=== PATIENT | female | born 1945 | race Caucasian/White ===

== ENCOUNTER 2017-04-19 12:16 | Outpatient (CLI) | payer MEDICARE ==
--- NOTE | 2017-04-19 14:30 | ULT ---
LEFT UPPER EXTREMITY VENOUS DUPLEX SONOGRAM: HISTORY: Left arm pain and edema. Breast cancer. FINDINGS: The left internal jugular and subclavian veins are evaluated along with the axillary, brachial, cepha lic, and basilic veins. There is good color and spectral Doppler flow, compression, and augmentation . IMPRESSION: No sonographic evidence of deep venous thrombosis within the left upper extremity. POS: [facility]
== END 2017-04-19 12:17 | disposition home or self-care (01) ==
LOC: ULT 12:16
PROVIDERS: ATTEND Internal Medicine Hematology & Oncology
DX: I82.90 Acute embolism and thrombosis of unspecified vein (principal); R60.0 Localized edema; M79.602 Pain in left arm
CPT/HCPCS: 82565

== ENCOUNTER 2017-09-18 11:50 | Outpatient (CLI) | payer MEDICARE ==
--- NOTE | 2017-09-18 15:04 | PET ---
PET SCAN WITH CT EVALUATION FROM SKULL TO MID THIGH: Date: 09/18/17 INDICATION: History of left-sided breast cancer. COMPARISON: Recent PET CT dated 08/24/15. RADIOPHARMACEUTICAL: 11.1 mCi F18-FDG IV was utilized. TECHNIQUE: Multiple PET CT images were obtained of the body from the skull base through the mid thighs following the administration of the radiopharmaceutical. CT images were obtained for attenuation correction pu rposes only. FINDINGS: The biodistribution for this examination appears acceptable. Head/Neck: No hypermetabolic lymphadenopathy or mass is identified. Thorax: There is a new 9.0 mm right upper lobe pulmonary nodule with mild increased metabolic uptake up to 1. 0. No new additional pulmonary nodule is demonstrated. No hypermetabolic lymphadenopathy is noted. Abdomen/Pelvis: There are multiple small hypermetabolic masses now present within the liver. Peak SUV uptake seen wit hin the left hepatic lobe lesion is 7.37. The previously seen right hepatic lobe lesion now has a pea k SUV uptake of 6.17. No additional hypermetabolic mass or lymphadenopathy is evident. Skin/Osseous Structures: The extent of the diffuse osteoblastic metastatic disease has improved from the comparison exam. Larg e residual areas of hypermetabolic activity remain within the region of the sacrum, thoracolumbar spi ne, ribs, proximal left femur, and right glenoid. IMPRESSION: Abnormal PET CT: 1. Findings of some mixed response to therapy. There is worsening hepatic metastatic disease but imp roved osseous metastatic disease. There are more numerous hypermetabolic masses now demonstrated with in the liver that what was seen on comparison in 2016. The degree and extent of the osseous metastati c disease has improved from the comparison study. 2. New nonhypermetabolic pulmonary nodule within the right upper lobe is suspicious for pulmonary me tastatic disease. CT follow-up in 6-8 weeks may be helpful. POS: [facility]
== END 2017-09-18 11:51 | disposition home or self-care (01) ==
LOC: PET 11:50
PROVIDERS: ATTEND Internal Medicine Hematology & Oncology
DX: C50.919 Malignant neoplasm of unspecified site of unspecified female breast (principal); C79.51 Secondary malignant neoplasm of bone; R16.0 Hepatomegaly, not elsewhere classified; R91.1 Solitary pulmonary nodule
CPT/HCPCS: 78815; A9552

== ENCOUNTER 2018-04-23 11:24 | Outpatient (CLI) | payer MEDICARE ==
--- NOTE | 2018-04-24 10:36 | PET ---
PET CT: HISTORY: Breast cancer with bony metastatic disease. COMPARISON: 09/18/17. TECHNIQUE: A PET CT was performed from the skull base through the mid thigh after administration of 11.4 mCi F18 -FDG. FINDINGS: The patient is status post left mastectomy. There are multifocal sclerotic lesions throughout the ske leton. Some of these lesions do not demonstrate hypermetabolic activity. However, there is persistent hypermetabolic activity in the bones consistent with diffuse osseous metastatic disease. When compar ed to the prior examination, this activity has changed slightly. The activity in the sacrum is not as intense as it was on the prior examination with a max SUV value of 5.0. However, activity has increa sed within some of the thoracic vertebral bodies. The T10 vertebral body has a max SUV value of 3.6. There is focal increased hypermetabolic activity in the anterior right lobe of the liver with a max S UV value of 4.5. This is in a different location than where the liver previously had hypermetabolic a ctivity in the right lobe, more posteriorly. No CT correlate is seen on the noncontrast CT images and this may or may not represent hepatic metastatic disease. No suspicious or hypermetabolic activity is seen in the neck. There is a small right upper lobe nodul e which is subcentimeter in size with a SUV value of 1.0. This is not changed in size compared to the prior examination and metabolic activity has not become more intense. No other pulmonary nodules are seen. No suspicious or hypermetabolic activity seen in the abdomen or pelvis. IMPRESSION: 1. Worsening hypermetabolic activity in the bones suggest worsening of osseous metastatic disease. 2. There is change activity in the liver. The activity in the liver may or may not represent hepatic metastatic disease. No CT correlate is seen. 3. Right upper lobe stable pulmonary nodule. POS: [facility]
== END 2018-04-23 11:25 | disposition home or self-care (01) ==
LOC: PET 11:24
PROVIDERS: ATTEND Internal Medicine Hematology & Oncology
DX: C50.919 Malignant neoplasm of unspecified site of unspecified female breast (principal); C79.51 Secondary malignant neoplasm of bone; R91.1 Solitary pulmonary nodule
CPT/HCPCS: 78815; A9552

== ENCOUNTER 2018-08-08 06:06 | Day surgery (SDC) | payer MEDICARE ==
[2018-07-31 12:11] VITALS: BMI 20.7
[2018-08-08] MEDS ORDERED: Fentanyl 100 MCG/2 ML VIAL ONE (06:13)
[2018-08-08] MEDS ORDERED: Propofol 1,000 MG/100 ML VIAL IV ONE ×2 (06:17→06:18)
[2018-08-08] MEDS ORDERED: Bupivacaine/Epinephrine 0.25% 30 ML VIAL ONE (06:38)
[2018-08-08] MEDS ORDERED: Lidocaine 1% (PF) 30 ML VIAL ONE (06:38)
[2018-08-08] MEDS ORDERED: Ketorolac Tromethamine 30 MG/ML VIAL ONE (06:46)
--- NOTE | 2018-08-08 09:47 | RAD ---
CHEST 1 VIEW: INDICATION: Status post MediPort placement. COMPARISON: Prior exam dated 01/04/2018. FINDINGS: There is a new right chest wall MediPort in place. The tip of the catheter projects in the region of the SVC. Heart size is normal. The lungs are clear. No pleural effusion or pneumothorax evident. There are surgical clips within the left axilla. Thoracolumbar scoliosis is stable. IMPRESSION: New right chest wall port without evidence of pneumothorax. POS: [facility]
--- NOTE | 2018-08-09 02:23 | OP ---
DATE OF PROCEDURE: 08/08/2018 PREOPERATIVE DIAGNOSIS: Metastatic breast cancer. POSTOPERATIVE DIAGNOSIS: Metastatic breast cancer. OPERATION PERFORMED: Placement of right subclavian low-profile power compatible MediPort. ANESTHESIA: Total intravenous anesthesia with local using 0.25% Marcaine with epinephrine. INDICATIONS: The patient is a 73-year-old white female. She has metastatic breast cancer to bone and liver. MediPort is requested for chemotherapy administration. DESCRIPTION OF OPERATION: Informed consent was obtained. The patient was taken to the operating room where total intravenous anesthesia was obtained with the patient in supine position. Right periclavicular area was prepped with ChloraPrep and draped in sterile fashion. Local anesthetic was infiltrated and a large-gauge needle was passed under the clavicle in the subclavian vein. Guidewire was passed through the needle and fluoroscopically confirmed to enter the superior vena cava. Additional local anesthetic was infiltrated and transverse incision was created based on needle insertion site. A subcutaneous pocket was dissected inferiorly. Introducer dilator was passed over the guidewire under fluoroscopic guidance. The guidewire and dilator were removed, and the catheter was passed through the introducer. The tip of the catheter was positioned at the atriocaval junction and the catheter was trimmed to the appropriate length and secured to the locking hub of the MediPort. The port was then placed in the subcutaneous pocket where it was secured to the pectoral fascia with 2 interrupted sutures of 3-0 Prolene. The incision was then closed in layers with 3-0 and 4-0 Monocryl. Additional local anesthetic was infiltrated. The port was cannulated with a Fitzpatrick needle and it aspirated blood freely and was flushed with heparinized saline. Dermabond was placed externally on the skin incision. There were no complications. Blood loss was negligible. The patient tolerated the procedure well and was taken to recovery room in stable condition. FINDINGS: The patient is thin, therefore I used a low-profile power compatible MediPort. The patient's anatomy was within normal limits and there were no problems during the procedure. The only port that is available in this size had a smaller catheter lumen, so I used a 6-T[place] catheter. The port was placed uneventfully in the right subclavian vein. She had had a prior right subclavian MediPort. There were no complications. Blood loss was negligible. The patient tolerated the procedure well. Job ID: [id number]
== END 2018-08-08 09:22 | disposition home or self-care (01) ==
LOC: SDC 06:06
PROVIDERS: ATTEND Specialist
PROC: 0JH63WZ Insertion of Totally Implantable Vascular Access Device into Chest Subcutaneous Tissue and Fascia, Percutaneous Approach (ICD-10-PCS; principal; 2018-08-08)
DX: C50.912 Malignant neoplasm of unspecified site of left female breast (principal); C78.7 Secondary malignant neoplasm of liver and intrahepatic bile duct; C79.51 Secondary malignant neoplasm of bone; Z79.899 Other long term (current) drug therapy
CPT/HCPCS: 36561; 71045; C1788; J0131; J1642; J1885; J2001; J2704; J3010

== ENCOUNTER 2019-02-06 10:49 | Outpatient (CLI) | payer MEDICARE ==
--- NOTE | 2019-02-06 15:37 | PET ---
PET CT: HISTORY: 73-year-old female with breast cancer and bone mets. Rising CA 27.29. Patient is currently undergoing chemotherapy. TECHNIQUE: PET scanning with CT attenuation correction was performed from the base of the brain through the prox imal thighs following the intravenous administration of 10.2 mCi F18-FDG in the right-sided MediPort. COMPARISON: PET CT dated 04/23/18. FINDINGS: No fallon hypermetabolism is seen in the neck, chest, axilla, abdomen, or pelvis. No hypermetabolic pu lmonary nodules, liver, adrenal, or skeletal lesions are seen. Uptake in the skeleton does not exceed that of the liver. Numerous sclerotic lesions are again seen in the skeleton. However, the previously noted hypermetabol ic activity in the osseous lesions noted on the previous study has resolved. There is physiologic activity in the GI and tracts, heart, and visualized portions of the brain. The CT scan used for attenuation correction demonstrates bilateral moderate sized pleural effusions, left greater than right. No ascites is seen. IMPRESSION: 1. No evidence of abnormal FDG localization. 2. Bilateral pleural effusions. 3. Extensive sclerotic osseous lesions. POS: [facility]
== END 2019-02-06 10:50 | disposition home or self-care (01) ==
LOC: PET 10:49
PROVIDERS: ATTEND Internal Medicine Hematology & Oncology
DX: C79.51 Secondary malignant neoplasm of bone (principal); C50.919 Malignant neoplasm of unspecified site of unspecified female breast; J90 Pleural effusion, not elsewhere classified; M89.9 Disorder of bone, unspecified
CPT/HCPCS: 78815; A9552

== ENCOUNTER 2019-02-27 10:23 | Outpatient (CLI) | payer MEDICARE ==
--- NOTE | 2019-02-27 11:56 | ULT ---
LEFT LOWER EXTREMITY VENOUS DUPLEX EXAM: HISTORY: Left leg pain and edema. TECHNIQUE: Real-time color Doppler evaluation of the left lower extremity was performed from the groin to the in lf. This includes evaluation of the common femoral, superficial and profunda femoral, saphenous, popl iteal, posterior tibial and peroneal veins. FINDINGS: This shows a patent deep venous system. There is normal compressibility and augmentation. There is no evidence of DVT. IMPRESSION: No evidence of deep venous thrombosis of the left lower extremity. POS: [facility]
== END 2019-02-27 10:24 | disposition home or self-care (01) ==
LOC: ULT 10:23
PROVIDERS: ATTEND Internal Medicine Hematology & Oncology
DX: M79.605 Pain in left leg (principal); R60.0 Localized edema; I82.90 Acute embolism and thrombosis of unspecified vein

== ENCOUNTER 2019-06-02 08:38 | Outpatient (CLI) | payer MEDICARE ==
--- NOTE | 2019-06-02 11:09 | CT ---
CT OF THE CHEST, ABDOMEN AND PELVIS WITH IV CONTRAST INDICATION: History of breast cancer with metastatic disease to the liver and bones COMPARISON: PET/CT dated February 06, 2019, September 18, 2017 and August 24, 2015 FINDINGS: CHEST: Lungs: The subpleural sub-4 mm pulmonary nodule in the anterior left upper lobe is stable. No new pul monary nodule is evident. Pleural space: There are small bilateral pleural effusions, left greater than right which are slight ly smaller than on the comparison PET/CT dated February 06, 2019. Mediastinum: No pathologically enlarged lymph nodes are evident. Axilla: No pathologically enlarged lymph nodes. ABDOMEN: Lung bases: Clear Liver: Metastatic lesions of the liver appear slightly more prominent than on the most recent PET/CT dated February 06, 2019 but are slightly smaller than seen on the comparison PET/CT dated September 18, 2017. Index lesion within the left hepatic lobe now measures 1.2 cm were previously measured 2.2 cm. The lesion within the right hepatic dome previously measuring 1.50 now measures 1.1 cm. Lesion seen within the right hepatic lobe previously measuring 1.6 cm now measures 0.8 cm there is diffuse hetero geneous enhancement of the liver some of which has the appearance of peripherally enhancing hypodense lesions particularly on image 49 of series 2. Gallbladder: Normal appearing. Pancreas: Normal. Adrenal glands: Normal. Spleen: Normal. Kidneys and ureters: Normal. No hydronephrosis. Vasculature: There are mild vascular calcifications seen involving the visualized vasculature. Lymph nodes:No lymphadenopathy. Free fluid in abdomen:No free fluid is evident. PELVIS: Small and large bowel: Normal Appendix:Normal Bladder: Normal. Rectal and perirectal soft tissues:Normal. Reproductive structures: Normal. Free fluid in pelvis: No free fluid is evident. Lymphadenopathy pelvis: No lymphadenopathy is evident. Osseous structures: The diffuse sclerotic metastatic lesions are largely stable. Index lesion within the left femoral head measures 1.1 cm which is stable. There is a new nondisplaced fracture involving the lateral right sixth rib. There is scattered degenerative and osteoarthritic changes. Soft tissues:Normal. IMPRESSION: 1. Findings suspicious for worsening hepatic metastatic disease. The hypodense lesions involving the liver with associated FDG activity on a PET scan dated September 18, 2017 are still slightly smaller than this examination; however, the lesions appear to have intervally grown since the most recent PET/CT d ated February 06, 2019. There are new scattered areas of punctate enhancement suspicious for new hepatic metastatic lesions. 2. Largely stable osteoblastic metastatic disease. There is a new nondisplaced fracture involving the right lateral sixth rib. 3. Stable sub-4 mm, subpleural pulmonary nodule in the left upper lobe. 4. Decreasing size of the bilateral pleural effusions. Small residual pleural effusions remain.
--- NOTE | 2019-06-02 11:17 | CT ---
CT BRAIN WITH AND WITHOUT IV CONTRAST: Date: 06/02/2019 HISTORY: Breast cancer with bone mets. FINDINGS: No evidence of infarct, hemorrhage, mass, midline shift, or abnormal extra-axial fluid collections ar e seen. The ventricular size is normal and the basilar cisterns are patent. No abnormal postcontrast enhancement is noted. The bony calvarium is intact. The visualized paranasal sinuses and mastoid air cells are well aerated. IMPRESSION: No CT evidence of intracranial metastatic disease. POS: [facility]
[2019-06-02] MEDS ORDERED: Iopamidol 370 76% 50 ML VIAL FS ONE (14:56)
[2019-06-02] MEDS ORDERED: Iopamidol 370 76% 100 ML VIAL ONE (14:56)
--- NOTE | 2019-06-02 15:31 | NM ---
WHOLE BODY BONE SCAN: Date: 06/02/2019 HISTORY: Malignant neoplasm of unspecified site of left female breast. RADIOPHARMACEUTICAL: 32.6 mCi technetium-99m MDP injected intravenously. COMPARISON: None. CORRELATION: CT chest/abdomen/pelvis of same date, and PET scan of 02/06/2019. FINDINGS: Numerous foci of increased uptake are seen in the skeleton including the skull, right scapula, spine, ribs, pelvis, and proximal femurs. Tracer excretion through the kidneys is within normal limits. IMPRESSION: Findings are consistent with widespread osseous metastatic disease. POS: [facility]
== END 2019-06-02 08:39 | disposition home or self-care (01) ==
LOC: CT 08:38
PROVIDERS: ATTEND Internal Medicine Hematology & Oncology
DX: C50.912 Malignant neoplasm of unspecified site of left female breast (principal); C79.51 Secondary malignant neoplasm of bone; C78.7 Secondary malignant neoplasm of liver and intrahepatic bile duct; J90 Pleural effusion, not elsewhere classified; R97.0 Elevated carcinoembryonic antigen [CEA]; K76.9 Liver disease, unspecified; R91.1 Solitary pulmonary nodule; S22.31XA Fracture of one rib, right side, initial encounter for closed fracture
CPT/HCPCS: 70470; 71260; 74177; 78306; 80053; 82248; 83615; 84100; 84550; 86300; A9503; Q9967

== ENCOUNTER 2019-06-11 09:21 | Outpatient (CLI) | payer MEDICARE ==
--- NOTE | 2019-06-11 11:56 | MRI ---
MRI PELVIS WITH AND WITHOUT CONTRAST: HISTORY: C79.51, secondary malignant neoplasm of bone. COMPARISON: Bone scan from 06/02/2019. CT exam from 06/02/2019. FINDINGS: On the T1 weighted imaging sequence, there is near complete marrow signal replacement of the sacrum, ilium and acetabulum, as well as the both superior and inferior pubic rami with T1 hypointense signal . There is also extensive hypointense signal of the femoral necks bilaterally. There is associated mi ld internal enhancement of these foci. There is an abnormal linear area of sclerosis within the right acetabulum, suggesting a nondisplaced insufficiency type fracture. The same is true for the left acetabulum. There is high trade tendinosis of both common hamstring tendons, greater on the left, with extensive interstitial tearing. Small volume free fluid in the pelvis. No dilated loops of bowel in the pelvis. Some mild edema within the left adductor longus muscle as well as the left pectineus. IMPRESSION: 1. Abnormal marrow signal replacement of nearly the entire sacrum, ilium, and acetabulum as well as b oth obturator rings with metastatic depositions. Given the internal enhancement, the majority of thes e metastatic deposits appear to be active metastasis and not treated metastasis. 2. Linear areas of sclerosis, both acetabula, slightly greater on the right, suggesting nondisplaced insufficiency type fractures due to the replacement of marrow with metastatic deposits. POS: [facility]
== END 2019-06-11 09:22 | disposition home or self-care (01) ==
LOC: MRI 09:21
PROVIDERS: ATTEND Internal Medicine Hematology & Oncology
DX: C50.912 Malignant neoplasm of unspecified site of left female breast (principal); C79.51 Secondary malignant neoplasm of bone; R10.32 Left lower quadrant pain; R93.7 Abnormal findings on diagnostic imaging of other parts of musculoskeletal system; M89.9 Disorder of bone, unspecified
CPT/HCPCS: 72197

== ENCOUNTER 2019-07-09 08:57 | Outpatient (CLI) | payer MEDICARE ==
--- NOTE | 2019-07-09 10:24 | ULT ---
Abdominal ultrasound: 07/09/2019 COMPARISON: None HISTORY: Ascites, history of breast cancer TECHNIQUE: Multiplanar grayscale sonographic imaging of the abdomen provided FINDINGS: Imaged portions of the IVC and aorta appear grossly unremarkable, partially obscured by bow el gas. The hepatic parenchyma is heterogeneous and echogenic with peripheral irregular contour. Findings suggest hepatocellular disease, which could reflect metastatic disease in the proper clinica l setting. No discrete/measurable hepatic mass is seen. Right kidney measures 8.9 cm in craniocaudal dimension and demonstrates no evidence for stone, hydron ephrosis, or mass lesion. Left kidney measures 9.3 cm in craniocaudal dimension and demonstrates no evidence for stone, hydrone phrosis, or mass lesion. There is gallbladder wall thickening with no gallstones noted. Pulpit Operator reports a negative Johns's sign. This gallbladder wall thickening is likely related to systemic proc ess. Spleen measures up to 10.3 cm, within normal limits. A partially visualized left pleural effusion is noted. There is small volume ascites noted, including small volume free fluid adjacent to the liver and small volume free fluid within the right lower quadrant. IMPRESSION: Abnormal appearance of the liver with peripheral lobulated contour and overall heterogene ity, which could signify chronic hepatocellular disease and or metastatic disease. Clinical correlation is required given history of breast cancer. Small volume ascites and incompletely imaged and left pleural effusion.
== END 2019-07-09 08:58 | disposition home or self-care (01) ==
LOC: ULT 08:57
PROVIDERS: ATTEND Internal Medicine Hematology & Oncology
DX: R18.8 Other ascites (principal); J90 Pleural effusion, not elsewhere classified; Z85.3 Personal history of malignant neoplasm of breast
CPT/HCPCS: 93975

== ENCOUNTER 2019-07-22 12:00 | Observation (INO) | payer MEDICARE ==
[2019-07-22 12:44] LABS: Hemoglobin 10.7 g/dL (12.0-16.0); Mean Corpuscular HGB CONC 33.1 g/dL (32.0-36.0); Mean Corpuscular Hemoglobin 32.6 pg (27.0-31.0); Mean Corpuscular Volume 98.7 fL (78.0-98.0); Mean Platelet Volume 9.7 fL (7.4-10.4); Platelet Count 142 thou/uL (130-400); RBC Distribution Width 19.5 % (11.5-14.5); Red Blood Cell (RBC) Count 3.27 mill/uL (4.20-5.40); White Blood Cell (WBC) Count 3.3 thou/uL (4.8-10.8)
[2019-07-22 12:57] LABS: Bacteria/HPF None Seen HPF (None Seen); Bilirubin Negative (Negative); Blood, Urine Trace (Negative); Clarity Clear (Clear); Glucose, Urine (Dipstick) Normal (Negative); Leukocyte Negative Leu/uL (Negative); Nitrite Negative (Negative); Protein, Urine (Dipstick) 70 mg/dL (Neg-Trace); Squamous Epithelial None Seen HPF (0-3); Urobilinogen Normal mg/dL (Less than 2); WBC/HPF 0-3 HPF (0-3)
[2019-07-22 13:00] LABS: Anisocytosis SLIGHT = 6-15 cells (100X) (0-5/hpf); Band 4 % (5-11); Lymphocytes 16 % (21-51); MDiff Complete? YES; Metamyelocyte 1 % (0-0); Monocytes 13 % (0-10); Neutrophil 65 % (42-75); Nucleated RBC 2 % (0); Platelet Morphology Comment Appears Adequate; Polychromasia MODERATE = 3-4 cells (100X) (0-2/hpf)
[2019-07-22 13:01] LABS: ALT (SGPT) 65 U/L (8-55); AST (SGOT) 173 U/L (5-34); Albumin 2.9 g/dL (3.4-4.8); Alkaline Phosphatase 615 U/L (40-110); Anion Gap 13 mmol/L (10-20); BUN (Urea Nitrogen) 23 mg/dL (9.8-20.1); Bilirubin, Total 0.8 mg/dL (0.2-1.2); Calc. Creatinine Clearance 0 mL/min (70-130); Calcium 7.8 mg/dL (7.8-10.44); Carbon Dioxide 18 mmol/L (23-31); Chloride 107 mmol/L (98-107); Estimated GFR-MDRD 52; Globulin 2.2 g/dL (2.4-3.5); Glucose 127 mg/dL (83-110); Lipase 45 U/L (8-78); Potassium 3.7 mmol/L (3.5-5.1); Protein, Total 5.1 g/dL (6.0-8.3); Sodium 134 mmol/L (136-145)
--- NOTE | 2019-07-22 13:06 | RAD ---
PORTABLE CHEST 1 VIEW: Date: 07/22/2019 Time: 1235 hours HISTORY: Dyspnea. Breast cancer. Osseous metastatic disease. FINDINGS: Comparison made with exam of 08/08/2018. Right-sided Port-A-Cath remains in place. The heart size is normal. No lobar consolidation, pneumotho races, or pleural effusions are seen. IMPRESSION: No radiographic evidence of acute cardiopulmonary process. POS: [facility]
--- NOTE | 2019-07-22 13:12 | ULT ---
BILATERAL LOWER EXTREMITY VENOUS DOPPLER ULTRASOUND: Date: 07/22/2019 COMPARISON: None. HISTORY: Pain, swelling, edema, assess for deep venous thrombosis. TECHNIQUE: Multiplanar Red scale sonographic imaging of the venous structures of bilateral lower extremities ob tained with color flow and spectral analysis. FINDINGS: Bilateral common femoral veins, greater saphenous veins, profunda femoral veins, femoral veins, popli teal veins, and posterior tibial veins are patent. Normal blood flow, augmentation, and compression w ithin the deep venous system bilaterally. No evidence for deep venous thrombosis on either side. IMPRESSION: No evidence for deep venous thrombosis of either lower extremity. POS: [facility]
--- NOTE | 2019-07-22 13:52 | CT ---
CTA Angio Chest W WO Con 07/22/2019 12:21 PM Indication: History of breast cancer with shortness of breath Technique: Multiple CTA images were obtained of the thorax with IV contrast. 3-D rendering: MIP aneudy nstructed images were created and reviewed. Comparison: CT the chest, abdomen and pelvis dated June 02, 2019 Findings: Pulmonary arteries: Respiratory motion artifact slightly limits evaluation of the segmental pulmonar y arterial branches of both lung bases. No definite central pulmonary embolus is demonstrated. Heart and Aorta: Normal appearing. Mediastinum:There is prominent wall thickening involving the mid to distal esophagus which is develop ed in the interim. There is a persistent small hiatal hernia. Lungs:There is bibasilar atelectasis, left greater than right. Pleural space: There is a worsening moderate left and small right pleural effusion Upper Abdomen: Again seen are numerous hypodense lesions involving the liver suspicious for underlyi ng hepatic metastatic disease. There is worsening mild ascites of the upper abdomen. Osseous Structures: Stable ununited right lateral sixth rib fracture. Stable diffuse osteoblastic me tastatic disease Soft tissues:Stable postsurgical change of a left mastectomy left axillary lymph node biopsy. Mild an asarca. Other findings:None. Impression: 1. Some limitations in exam. No definite central pulmonary embolus. 2. Worsening moderate left and mild right pleural effusion with mild ascites and mild anasarca. 3. Interval development of prominent wall thickening involving the mid to distal esophagus suspicious for esophagitis. There is persistent small hiatal hernia. 4. Stable diffuse osseous and hepatic metastatic disease.
[2019-07-22] MEDS ORDERED: Iopamidol-370 76% 500 ML 1 ML ONE (13:58)
[2019-07-22] MEDS ORDERED: Acetaminophen 325 MG TAB PO PRN (18:48)
[2019-07-22] MEDS ORDERED: Ondansetron PF 4 MG/2 ML Vial IVP PRN (18:48)
[2019-07-22] MEDS ORDERED: Ondansetron ODT 4 MG TAB PO PRN (18:48)
[2019-07-22] MEDS ORDERED: Guaifenesin DM 100-10/5 ML UDCUP PO PRN (18:48)
[2019-07-22] MEDS ORDERED: Senokot S 8.6-50 MG TAB PO PRN (18:48)
[2019-07-22] MEDS ORDERED: Zolpidem Tartrate 5 MG TAB PO PRN (18:48)
[2019-07-22] MEDS ORDERED: Acetaminophen 650 MG Suppository PR PRN (18:48)
[2019-07-22] MEDS ORDERED: HYDROcodone/Acetaminophen 5/325 mg Tablet PO PRN ×2 (18:48)
--- NOTE | 2019-07-22 20:32 | HP ---
PRIMARY CARE PHYSICIAN: Bria Naylor. CHIEF COMPLAINT: Shortness of breath and swelling. HISTORY OF PRESENT ILLNESS: This is a 74-year-old white female with a known history of metastatic breast cancer metastasized to the bones and the liver. She was diagnosed back in 2011, had mastectomy and lymph node dissection, has had multiple courses of different types of chemotherapy. Most recently two weeks ago, was seen by Dr. Herman and then was sent to Dr. Franco for a 10-day course of radiation therapy to the cancer in her pelvis. After completing that, she noticed some increasing swelling in her lower extremities and also some increasing shortness of breath and a band sensation around her diaphragm area. The patient has had increased swelling of her abdomen over the last few weeks to months. It has been slowly getting worse. She has had an ultrasound that just showed a small amount of ascites, nothing that could be drained. She has had a little bit of a cough with shortness of breath, but no sputum production. Has not had any fever or chills or any other infectious symptoms. When she noticed her legs swollen this morning is when she decided to come into the emergency room. In the ER, the patient had a CT scan, which showed a moderate-sized left pleural effusion and mild right pleural effusion with mild ascites and mild anasarca. She also had some wall thickening of the distal to mid esophagus suspicious for esophagitis and stable diffuse osseous and hepatic metastatic disease, but no evidence of PE. She also had bilateral lower extremity Dopplers, which were negative for DVTs. REVIEW OF SYSTEMS: CONSTITUTIONAL: No fevers. No chills. EYES: No double vision or blurred vision. ENT: No congestion, drainage, or sore throat. CARDIOVASCULAR: No chest pain. No palpitations or racing heart. PULMONARY: See HPI. No wheezing. Her shortness of breath is worse when she lays down flat or when she sits up or bends over because her belly puts a lot of pressure on her diaphragm and rib cage. GASTROINTESTINAL: No abdominal pain. No nausea or vomiting. She has had some loose, very dark stools for the last couple weeks ever since starting the radiation therapy with some blackness to the stool. GENITOURINARY: No dysuria or hematuria. MUSCULOSKELETAL: No muscle aches or joint pain. SKIN: No rashes or other lesions. She does have a mild redness to her left upper extremity, is chronic from her mild lymphedema. NEUROLOGIC: She has some tingling in bilateral feet from peripheral neuropathy from a previous chemotherapy regimen. No other new neurologic signs. PAST MEDICAL HISTORY: Left-sided breast cancer, metastatic to bones and liver, status post mastectomy, lymph node dissection, and multiple courses of chemotherapy and radiation. PAST SURGICAL HISTORY: 1. Left-sided breast cancer resection. 2. Left arm surgery for compound fracture. 3. Port placement. SOCIAL HISTORY: No tobacco, alcohol, or illicit drug use. The patient is a , lives with her identical twin sister who is her medical power of criminal attorney and accompanies her into the hospital today. The patient is a do not attempt resuscitation. FAMILY HISTORY: No significant family medical history. ALLERGIES: NO KNOWN DRUG ALLERGIES. CURRENT MEDICATION: Lomotil 2.5 mg every 6 hours as needed for diarrhea. PHYSICAL EXAMINATION: VITAL SIGNS: Blood pressure 104/50, pulse 92, respirations 18, temperature 98.8, and O2 saturation 96% on room air. GENERAL: This is a well-developed, well-nourished white female, in no acute distress. HEENT: Pupils are equal, round, and reactive to light. Oropharynx is clear without lesions, erythema, or exudate. NECK: Supple. No lymphadenopathy. No thyroid nodules or enlargement. No JVD. HEART: Regular rate and rhythm. No murmurs, rubs, or gallops. LUNGS: Clear to auscultation bilaterally. No wheezes, crackles, or rhonchi. ABDOMEN: Soft, distended. Normoactive bowel sounds. No hepatosplenomegaly. She does not have a fluid wave. EXTREMITIES: No clubbing or cyanosis. The patient does have some mild lymphedema in the left upper extremity and she has some mild nonpitting edema in bilateral lower extremities that looks consistent with lymphedema as well. SKIN: No rashes or lesions noted. NEUROLOGIC: Intact strength and sensation in all extremities. No facial droop. LABORATORY DATA: CBC with a white blood cell count 3.3, hemoglobin 10.7, hematocrit 32.3, platelet count 142. Complete metabolic panel is notable for sodium of 134, carbon dioxide of 18, BUN of 23, glucose of 127, AST of 173, ALT of 65, and alkaline phosphatase of 615 and an albumin of 5.2. The rest was normal. Troponin was negative x1. Brain natriuretic peptide was negative and lactic acid was negative. Urinalysis showed 46 red blood cells, no white blood cells, no bacteria. CT scan of the chest and thorax as above and ultrasound of lower extremities is negative for DVT. ASSESSMENT: 1. Dyspnea and mild cough, especially worsened by bending over or compressing her against her stomach. This is likely related to her pleural effusion and also worsening anasarca and abdominal swelling. She does not have a significant ascites that can be drained. We will have Pulmonology consult and see if possibly draining her moderate-sized left pleural effusion would be beneficial to her. This seems to be all direct cancer effect. She may also be having some side effects from the radiation causing the lower extremity edema, though I suspect it is mostly due to cancer and poor liver production of albumin. At this point, it sounds like the patient has had multiple courses of chemotherapy and is running out of options. She may need transitioning to more palliative type care and possibly hospice. This is the discussion that will need to be had between her and her oncologist, so we will consult Dr. Hreman to see her as well tomorrow. At this point, the patient is not requiring oxygen and if there are no interventions to be done in the hospital, can possibly go home tomorrow. 2. Metastatic breast cancer. 3. Anemia. Hemoglobin is stable from August of last year, likely related to her cancer and poor nutrition. No evidence of active bleeding at this time, though she may be having some small amounts of blood loss after the radiation therapy affecting her GI tract. At this time, there is no evidence of significant bleeding and no need for further workup or transfusion or intervention. 4. Gastrointestinal prophylaxis, put the patient on Pepcid twice a day. 5. Deep venous thrombosis prophylaxis, put the patient on Lovenox subcu and monitor her blood counts. 6. Code status, I did discuss this with the patient, she is a do not attempt resuscitation and her sister is her medical power of criminal attorney should she be incapacitated, her name is Rupinder Clayton. Job ID: [id number]
[2019-07-22] MEDS: Famotidine 20 MG TAB PO SCH (21:32)
[2019-07-22 22:28] VITALS: BMI 24.2
[2019-07-23 05:43] LABS: Anion Gap 10 mmol/L (10-20); BUN (Urea Nitrogen) 20 mg/dL (9.8-20.1); Calc. Creatinine Clearance 46 mL/min (70-130); Calcium 7.3 mg/dL (7.8-10.44); Carbon Dioxide 21 mmol/L (23-31); Chloride 109 mmol/L (98-107); Estimated GFR-MDRD 59; Glucose 87 mg/dL (83-110); Potassium 3.9 mmol/L (3.5-5.1); Sodium 136 mmol/L (136-145)
[2019-07-23 07:33] LABS: Hemoglobin 7.9 g/dL (12.0-16.0); Mean Corpuscular HGB CONC 33.5 g/dL (32.0-36.0); Mean Corpuscular Hemoglobin 33.5 pg (27.0-31.0); Platelet Count 118 thou/uL (130-400); RBC Distribution Width 19.5 % (11.5-14.5); Red Blood Cell (RBC) Count 2.35 mill/uL (4.20-5.40)
[2019-07-23 07:42] LABS: Band 2 % (5-11); Lymphocytes 38 % (21-51); MDiff Complete? YES; Metamyelocyte 3 % (0-0); Monocytes 12 % (0-10); Neutrophil 45 % (42-75); Platelet Morphology Comment Appears Decreased; Polychromasia SLIGHT = 2-3 cells (100X) (0-2/hpf); Schistocytes SLIGHT = 2-5 cells (100X) (0-1/hpf)
[2019-07-23] MEDS ORDERED: Enoxaparin Sodium 40 MG/0.4 ML SYRINGE SC SCH (09:00)
[2019-07-23] MEDS: Famotidine 20 MG TAB PO SCH (09:02)
[2019-07-23] MEDS ORDERED: Furosemide 20 MG/2 ML VIAL SLOW IVP SCH (09:15)
--- NOTE | 2019-07-23 11:23 | CON ---
DATE OF CONSULTATION: HISTORY OF PRESENT ILLNESS: A 74-year-old female from [place], [place], who sees Dr. Herman, presented to the hospital with shortness of breath without any associated chest pain, chills, or sweats. CT abdomen showed ascites, bilateral pleural effusions, left greater than right. She is a nonsmoker. No prior history of TB, pneumonia, or bronchial asthma. She now tells me she wants to go home. Dr. Herman has discussed with her options, they are going to started on some new chemotherapy. PAST MEDICAL HISTORY: Left breast carcinoma, lumpectomy, mastectomy. HOME MEDICATIONS: Otezla. SOCIAL HISTORY: Worked exon. REVIEW OF SYSTEMS: Otherwise 10-point negative. PHYSICAL EXAMINATION: VITAL SIGNS: Temperature 98, pulse 113, respirations 18, saturations 96% on room air, blood pressure 106/65. CHEST: Decreased breath sounds without any wheezing. CARDIAC: Normal S1 and S2. No gallops. ABDOMEN: No masses. LABORATORY DATA: White count 3000, hemoglobin and hematocrit 7 and 23, platelet count 118. Lytes are normal. ASSESSMENT: 1. Bilateral pleural effusions, metastatic carcinoma, breasts. 2. Ascites. PLAN: Disposition per Oncology. Pleural effusion at this stage small enough for thoracentesis. effusion gets larger, I would be happy to do a thoracentesis. Consultation note, 70 minutes, 50% direct patient care. Job ID: [id number] MTDD
--- NOTE | 2019-07-23 11:24 | ULT ---
Ultrasound abdomen limited: DATE: 07/23/2019 HISTORY: 74-year-old female with abdominal distention. Evaluate for ascites. COMPARISON: 07/09/2019 TECHNIQUE: Limited single views of each quadrant, plus single image at midline. FINDINGS: Greatest pocket of free fluid is in the right lower quadrant, a moderately large amount. There are sm all amounts in each of the other quadrants. The amount of free fluid appears similar to that of the prior ultrasound. IMPRESSION: Small to moderate volume of ascites. No major interval change.
[2019-07-23 12:00] VITALS: BP 120/67; TEMP 98.8
--- NOTE | 2019-07-23 13:48 | PDOC.PALCO ---
Palliative Care Consult - Consult Details Requesting Physician: Dr Fernandes Reason for Consult: assistance with communication prognosis/disease - Allergies Allergies/Adverse Reactions: Allergies Allergy/AdvReac Type Severity Reaction Status Date / Time No Known Allergies Allergy Unverified 07/31/18 12:13 - Objective Vital Signs: Vital Signs - Most Recent Temp Pulse Resp BP Pulse Ox 98.8 F 117 H 18 120/67 97 07/23/19 11:20 07/23/19 11:20 07/23/19 11:20 07/23/19 11:20 07/23/19 11:20 - Plan/Recommendations Plan: [] minutes spent on this encounter with >50% of the time in counseling and coordination of care. Thank you for this very appropriate consult.
[2019-07-23 14:13] LABS: ALT (SGPT) 60 U/L (8-55); AST (SGOT) 163 U/L (5-34); Albumin 2.8 g/dL (3.4-4.8); Alkaline Phosphatase 588 U/L (40-110); Bilirubin, Direct 0.5 mg/dL (0.1-0.3); Bilirubin, Total 0.8 mg/dL (0.2-1.2); Protein, Total 4.9 g/dL (6.0-8.3)
--- NOTE | 2019-07-23 15:29 | CON ---
DATE OF CONSULTATION: REASON FOR CONSULTATION: Metastatic breast cancer. HISTORY OF PRESENT ILLNESS: Ms. 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 She has been through multiple chemotherapy regimens. Most recently, she was on Ibrance and Faslodex. She stopped the Faslodex because it was extremely painful and she refused any further shots. She also stopped the Ibrance and has not been on any therapy for about a month. She recently underwent radiation therapy for pain in her pelvis. Over the last several weeks, she has had abdominal bloating. She did have an ultrasound that showed no ascitic fluid in June. Yesterday, she presented to the emergency room with shortness of breath and swelling. She underwent a chest and thorax CT angio, which was negative for pulmonary embolus. It did show a moderate left and mild right pleural effusions. There was mild ascites and mild anasarca, but not enough to drain. She was admitted and we were asked to see the patient regarding treatment options. PAST MEDICAL HISTORY: 1. Metastatic breast cancer. 2. Psoriasis. 3. Left upper extremity lymphedema. PAST SURGICAL HISTORY: 1. MediPort placement. 2. Breast mastectomy. ALLERGIES: NO KNOWN DRUG ALLERGIES. HOME MEDICATIONS: 1. Hydrocodone p.r.n. 2. Lomotil for diarrhea. FAMILY HISTORY: Noncontributory. SOCIAL HISTORY: . Lives with her sister. No alcohol, tobacco, or illicit drug use. REVIEW OF SYSTEMS: A 10-point review of systems is negative except for noted in HPI. PHYSICAL EXAMINATION: VITAL SIGNS: Temperature 98.7, pulse is 113, respiratory rate 18, BP is 106/65, and she is 96% on room air. GENERAL: This is a chronically ill-appearing female, in no acute distress. HEENT: Normocephalic and atraumatic. Pupils are equal and reactive to light. NECK: Supple. CV: Regular rate and rhythm. LUNGS: Clear. ABDOMEN: Slightly distended. Bowel sounds are positive. EXTREMITIES: No clubbing or cyanosis. SKIN: No rash. HEMATOLOGIC: No petechiae or purpura. NEUROLOGIC: Nonfocal. PERTINENT LABORATORY DATA AND X-RAYS: Current WBCs 3, hemoglobin 7.9, hematocrit 23.5, platelet count is 118,000, 45% neutrophils, 2% bands, and 38% lymphocytes. Sodium 136, potassium 3.9, chloride 109, CO2 is 12, BUN is 20, creatinine 0.92, and calcium 7.3. Bilirubin 0.8, AST is 173, ALT 65, and alkaline phosphatase is 615. Troponin is negative. BNP is 68.4. Serum total protein 5.1, albumin 2.9, and globulin 2.2. Urine is negative for bacteria. ASSESSMENT: 1. Metastatic breast cancer. 2. Minimal ascites. 3. Bilateral pleural effusions. DISCUSSION: The patient's pleural effusion is too small for a thoracentesis. She has minimal ascites, so no paracentesis is planned. She will start a diuretic at home. She would like to try more palliative chemotherapy. The plan will be to start in 2 weeks. She will follow up in our office. Dr. Herman has seen the patient. Thank you for the consult. Job ID: [id number]
--- NOTE | 2019-07-24 14:36 | DIS ---
DATE OF ADMISSION: 07/22/2019 DATE OF DISCHARGE: 07/23/2019 DISCHARGE DIAGNOSES: 1. Left and right pleural effusion 2. Esophagitis 3. Transaminitis 4. Pancytopenia CONSULTATIONS: 1. Dr. Hayden Roy with Pulmonology. 2. Precious Barrientos with Oncology. 3. Palliative Care with Claudia Cardenas. PROCEDURES: None. BRIEF HISTORY OF PRESENT ILLNESS: This is a 74-year-old female with a past medical history of breast cancer, metastatic to the liver and bones who has received multiple types of chemotherapy, who had presented to the emergency room with increasing swelling in her lower extremities as well as shortness of breath. She also reported worsening swelling of her abdomen. She came to the emergency room for further evaluation. In the emergency room, the patient had a chest x-ray, which was normal. CTA of her chest showed no PE, but a moderate-sized left pleural effusion and mild right pleural effusion with mild ascites. The patient was admitted for further workup. HOSPITAL COURSE: Moderate left and mild right pleural effusion/ascites: The patient underwent consultation with Dr. Roy. Thoracentesis was offered for therapeutic relief. However, the patient refused. The patient stated that she wanted to go home. Dr. Herman requested the Palliative Care evaluate the patient, however, the patient was not interested in having a discussion with Palliative Care prior to discharge. Dr. Herman was consulted and recommended followup as an outpatient for re-evaluation for chemotherapy. She was discharged with Lasix 20 mg daily for symptom relief. She did have an abdominal ultrasound, which showed small to moderate volume of ascites.Dopplers of her lower extremities showed no evidence of DVT. Esophagitis: The patient was noted to have mild esophageal thickening on her CTA of her chest. She was discharged with Protonix 40 mg daily. Transaminitis: The patient was noted to have elevated LFTs. This most likely could be secondary to hepatic congestion from ascites. This should be further monitored as an outpatient. Pancytopenia: This is most likely secondary to patient's chemotherapy. She did have vitamin B12 and folate levels checked, which were normal. She had a CA 27/ 29, which was elevated at 1097.5. The patient will follow up with Dr. Herman as an outpatient. DISCHARGE PHYSICAL EXAMINATION: VITAL SIGNS: Temperature 98.8, heart rate 117, respiratory rate 18, O2 saturation 97% on room air, blood pressure 120/67. GENERAL: The patient is alert, awake, oriented x3. CVS: Regular rate and rhythm with no murmurs, rubs, or gallops. LUNGS: Diminished breath sounds bilaterally at the bases. ABDOMEN: The patient has a soft, distended abdomen with dullness to percussion. She has no tenderness, guarding, or rigidity. EXTREMITIES: 1 to 2+ pitting edema. PERTINENT LABORATORY DATA: CBC on 07/22: White count 3.0, hemoglobin 7.9, hematocrit 23.5, MCV 100, platelet count 118. BMP on 07/22: Chloride 109, carbon dioxide 21, creatinine 0.92. LFTs: AST 163, ALT was 60, alkaline phosphatase 588, direct bilirubin 0.5. Vitamin B12: Greater than 2000. Folate: 13.9. CA : 1097.5. IMAGING STUDIES: Chest x-ray on 07/21 :shows no acute disease. CTA chest on 07/21: Worsening moderate left and mild right pleural effusion with mild ascites and mild anasarca. Interval development of prominent wall thickening involving the mid to distal esophagus suspicious for esophagitis. There is a small hiatal hernia. Stable diffuse osseous and hepatic metastatic disease. Venogram 07/21: No evidence of DVT. Abdominal ultrasound 07/22: Small to moderate volume of ascites. DISCHARGE CONDITION: Stable for discharge home. ACTIVITY: As tolerated. DIET: Heart-healthy diet with a 2 L fluid restriction. DISCHARGE MEDICATIONS: New prescriptions: 1. Furosemide 20 mg p.o. daily. 2. Protonix 40 mg p.o. daily. 3. Potassium chloride 20 mEq p.o. daily. DISCHARGE INSTRUCTIONS: The patient should follow up with her PCP in 1 week to have repeat labs to check her electrolytes and potassium level. She did also have a rib fracture on the 6th rib. She should follow up with Dr. Herman in 2 weeks for re-evaluation of chemotherapy. Job ID: [id number] [facility]
== END 2019-07-23 14:20 | disposition home or self-care (01) ==
LOC: ERS 12:00 → INTOOBSV 15:45 → ERHOLD 15:45 → ONC 20:38
PROVIDERS: ADMIT Emergency Medicine; ATTEND Internal Medicine
DX: J90 Pleural effusion, not elsewhere classified (principal); R18.8 Other ascites; K20.9 Esophagitis, unspecified; D64.9 Anemia, unspecified; D61.818 Other pancytopenia; R74.0 Nonspecific elevation of levels of transaminase and lactic acid dehydrogenase [LDH]; Z85.3 Personal history of malignant neoplasm of breast; Z85.05 Personal history of malignant neoplasm of liver; Z85.830 Personal history of malignant neoplasm of bone
CPT/HCPCS: 71045; 71275; 76705; 80048; 80053; 80076; 82607; 82746; 83605; 83690; 83880; 84484; 85025 ×2; 86300; 93005; 93970; 96374; 97139 ×3; 99285; G0378 ×3; 36415; 81003; 81015; J1642; J1940; Q9967